=== PATIENT | female | born 1940 | race Caucasian/White ===

== ENCOUNTER → 2019-11-15 | Outpatient (CLI) | payer MEDICARE ==
--- NOTE | 2019-11-10 09:02 | NUR ---
LMOM WITH INSTRUCTIONS. REQUEST THAT PT CALL BACK
[~2019-11-15] VITALS: Ht 160 cm; Wt 101.0 kg
[~2019-11-15] MED LIST: ACCUPRIL20 MG PO; ACCURETIC 12.51 TA1 PO; ADVIL200 MG PO; ASPIR-LOW81 MG PO; ASPIRIN 81M81 MG/TA2 PO; BYSTOLIC2.5 MG PO; BYSTOLIC5 MG PO; FEMARA PO; GLUCOPHAGE500 MG/TAB PO; HYDROCHLOROTHIAZIDE; IBUPROFEN 200200 MG PO; LASIX 20MG TABL20 MG PO; LEVOTHROID0.125 MG PO; LEVOXYL0.2 MG PO; MULTIPLE VITAMI1 TA5 PO; MVI; NITROSTAT0.4 MG SL; NITROSTAT0.4 MG/TAB SL; NORVASC 10MG10 MG PO; NORVASC10 MG PO; PROAIR HFA0.09 MG/AC IH; PROTONIX 40MG T40 MG PO; QUINAPRIL; QUINARETIC PO; TYLENOL 325MG325 MG PO; ZESTRIL 20MG TA20 MG PO; ZOCOR 40MG40 MG PO; ZOCOR40 MG PO
[2019-11-15 10:17] VITALS: BP 195/85; PULSE 75
[2019-11-15 11:20] VITALS: BP 187/79; PULSE 66
== END ==
LOC: COL.RAD
DX: C50.412 Malignant neoplasm of upper-outer quadrant of left female breast (principal); R59.0 Localized enlarged lymph nodes

== ENCOUNTER 2020-03-14 08:57 | Day surgery (SDC) | payer MEDICARE ==
[~2020-03-14] VITALS: Ht 160 cm; Wt 101.1 kg
[~2020-03-14 08:57] MED LIST changes: +ALDACTONE 25MG25 M1 PO; +ALDACTONE50 MG PO; +ANORO IH; +ILOTYCIN5 MG/GM OP; +LASIX 40MG TABL40 MG PO; +MEDROL 4MG DOSPA4 MG PO; +OMNICEF 300MG300 MG PO; +OXYGEN NASAL.CANN; +QUESTRAN4 GM/9 GM PO; +VENTOLIN0.09 MG IH
[2020-03-14 09:49] VITALS: BP 167/68; PULSE 64; TEMP 97.8
[2020-03-14 11:10] VITALS: BP 196/76; PULSE 60; TEMP 97.8
--- NOTE | 2020-03-14 11:22 | NUR ---
PT RETURNED FROM ENDO PROCEDURE ROOM INTO BAY#5. AMBULATED WITH 2 PERSON ASSIST WITHOUT PROBLEMS. BP ELEVATED. PT STATES SHE IS NERVOUS AND DOES TEND TO RUN HIGH. OTHER VS ARE WNL. ASKS FOR GRAPE JUICE. DENIES PAIN OR NAUSEA AT THIS TIME.
[2020-03-14 11:30] VITALS: BP 185/68; PULSE 60
--- NOTE | 2020-03-14 11:32 | NUR ---
PT TOLERATING GRAPE JUICE AND CRACKERS. DENIES PAIN AND NAUSEA/VOMITING. DC IV AMD IVF. WILL CONT TO MONITOR.
[2020-03-14 11:47] VITALS: BP 167/72; PULSE 60
--- NOTE | 2020-03-14 11:48 | NUR ---
PT TOLERATING FOOD AND FLUIDS, CONTINUING TO DENY PAIN OR NAUSEA AT THIS TIME. DR MCKOY AWARE OF INCREASE IN BP. SPOKE WITH PT ABOUT INCREASING HER DIURETICS. REFER TO POST PROCEDURE INSTRUCTIONS. PT SIGNED DISCHARGE INSTRUCTIONS. DENIES QUESTIONS OR CONCERNS.
--- NOTE | 2020-03-14 12:21 | NUR ---
PT DISCHARGED PER WC. SISTER WAS DRIVING FAMILY VEHICLE.
== END 2020-03-14 12:26 | disposition home or self-care (01) ==
LOC: SDCO 08:57
DX: K74.60 Unspecified cirrhosis of liver (principal); E66.9 Obesity, unspecified; Z68.36 Body mass index [BMI] 36.0-36.9, adult; Z90.49 Acquired absence of other specified parts of digestive tract; Z95.1 Presence of aortocoronary bypass graft; I25.10 Atherosclerotic heart disease of native coronary artery without angina pectoris; I25.2 Old myocardial infarction; I10 Essential (primary) hypertension; E78.5 Hyperlipidemia, unspecified; Z87.891 Personal history of nicotine dependence; K21.9 Gastro-esophageal reflux disease without esophagitis; E03.9 Hypothyroidism, unspecified
CPT/HCPCS: J2704; J7030

== ENCOUNTER 2020-11-01 21:55 | Inpatient (IN) | payer MEDICARE ==
[~2020-11-01] VITALS: Ht 160 cm; Wt 109.6 kg
[2020-11-01 23:37] LABS: HEMOGLOBIN 11.9 g/dl (12.5-16.0); MEAN CELL VOLUME 95 fl (80.0-100.0); MEAN CORPUSCULAR HEMOGLOBIN 31 pg (27.0-31.0); MEAN CORPUSCULAR HGB CONC 33 g/dl (33.0-37.0); PLATELET COUNT 410 K/mm3 (130-400); RED BLOOD COUNT 3.84 M/mm3 (4.10-5.30); REDCELL DISTRIBUTION WIDTH-CV 16.2 % (11.5-14.5)
[2020-11-01 23:39] LABS: HEMATOCRIT 36.4 % (37.0-47.0)
[2020-11-01 23:47] LABS: ALBUMIN 4.1 gm/dL (3.5-5.0); BILIRUBIN,TOTAL 0.6 mg/dL (0.0-1.0); CALCIUM 9.9 mg/dL (8.4-10.2); CREATININE, serum 1.42 (0.52-1.25); POTASSIUM 5.4 mmol/L (3.4-5.0); TOTAL PROTEIN 7.4 gm/dL (6.4-8.2)
[2020-11-01 23:58] LABS: ANISOCYTOSIS 1+; BAND 4 % (0-10); HYPOCHROMIA 2+; LYMPHOCYTE 3 % (20.0-51.0); NEUTROPHILS 91 % (42.0-75.2); NUCLEATED RED BLOOD CELL 1 (0-6); PLATELET ESTIMATE INCREASED (NORMAL)
[2020-11-02 02:04] LABS: COLLECTION METHOD CLEAN CATCH
[2020-11-02 02:15] LABS: MUCOUS Present /lpf; PH 5 (5-8); URINE APPEARANCE Cloudy; URINE BACTERIA Occasional /hpf; URINE BILIRUBIN Negative (NEGATIVE); URINE BLOOD 3+ (NEGATIVE); URINE CALCIUM OXALATE CRYSTAL Present /hpf; URINE COLOR Amber; URINE GLUCOSE Negative (NEGATIVE); URINE KETONE Trace (NEGATIVE); URINE LEUKOCYTE ESTERASE 2+ (NEGATIVE); URINE NITRATE Negative (NEGATIVE); URINE PROTEIN(semi-quant) 2+ (NEGATIVE); URINE UROBILINOGEN Negative (NEGATIVE)
[2020-11-02 03:36] LABS: CALCIUM 8.8 mg/dL (8.4-10.2); CREATININE, serum 1.28 (0.52-1.25); MAGNESIUM 1.3 mg/dL (1.6-2.3); PHOSPHOROUS 4.3 mg/dL (2.5-4.5)
[2020-11-02 03:57] VITALS: BP 156/61; PULSE 77; TEMP 98
[2020-11-02 04:00] LABS: TROPONIN-I 0.023 ng/mL (0.000-0.035); TSH w REFLEX 4.656 uIU/mL (0.350-4.940)
--- NOTE | 2020-11-02 04:22 | NUR ---
Pt came for fall. She stated she was not feeling well after she took her second covid shot. She was going to the bathroom and fell and her son foud her. BP is elevated. Pain rated 4/10. Pt is getting IV fluid. Will continue to monitor.
[2020-11-02] MEDS ORDERED: QUESTRAN4 GM/9 GM PO (04:36)
[2020-11-02 06:49] LABS: BASO % 0.2 % (0.0-2.0); GRAN % 86.5 % (42.2-75.2); HEMOGLOBIN 10.2 g/dl (12.5-16.0); LYMPH # 0.8 (1.2-3.4); LYMPH % 4.8 % (20.0-51.0); MEAN CELL VOLUME 96 fl (80.0-100.0); MEAN CORPUSCULAR HEMOGLOBIN 31 pg (27.0-31.0); MEAN CORPUSCULAR HGB CONC 32 g/dl (33.0-37.0); MEAN PLATELET VOLUME 10.6 fl (7.4-10.4); MONO # 1.3 (0.1-0.6); MONO % 7.7 % (1.7-9.3); PLATELET COUNT 375 K/mm3 (130-400); REDCELL DISTRIBUTION WIDTH-CV 16.4 % (11.5-14.5)
[2020-11-02 06:51] LABS: HEMATOCRIT 31.8 % (37.0-47.0)
[2020-11-02 08:35] VITALS: BP 152/62; PULSE 66; TEMP 97.9
[2020-11-02 08:41] LABS: CALCIUM 9.1 mg/dL (8.4-10.2); CREATININE, serum 1.27 (0.52-1.25); POTASSIUM 5.1 mmol/L (3.4-5.0)
--- NOTE | 2020-11-02 10:08 | NUR ---
PT just in recently working with pt. They reported that she did well, but did not feel comfortable going too far from the side of the bed. Had some complaints of pain, but stated it was tolerable.
--- NOTE | 2020-11-02 10:51 | NUR ---
gas plant worker met with patient to discuss discharge plan. Patient lives at home alone at home in [place]. Patient reports she is independent on all activities of daily living and use a walker to ambulate when she feels like she needs it. PCP is Dr. Greco at [facility] and uses [facility] in [place]. Worker discussed the recommendation from PT/OT for a SNF stay. Patient refuses to be placed in a facility of any kind but is open to HH. States she has had HH for PT before that ended this past January but unsure of the agency. Worker called Dr. Greco's office and they have [facility] on their file. Patient states she has multiple family members who are in the medical field "that can help me". Worker attempted to call oldest son Pieter to discuss, message left. *Discharge plan: Home with HH/family* *
--- NOTE | 2020-11-02 11:26 | NUR ---
Son Ray ([phone]) called this worker back. Worker explained that patient is refusing skilled care and he is supportative of this decision. Son's belief is that the falls are due to the water retenion and want's to know if there was a medication we could give her to slow down the retention. Worker offered to have [facility] nurse call him.
--- NOTE | 2020-11-02 11:36 | NUR ---
Pt blood sugar 68, gave her juice at this time. Pt has also ordered her lunch
[2020-11-02 11:48] LABS: CALCIUM 8.7 mg/dL (8.4-10.2); CREATININE, serum 1.18 (0.52-1.25); POTASSIUM 5.5 mmol/L (3.4-5.0)
[2020-11-02 12:55] VITALS: BP 145/61; PULSE 64; TEMP 97.5
--- NOTE | 2020-11-02 13:56 | NUR ---
Pt blood sugar did recover quickly after the juice earlier around lunch time. Pt does not eat much, states that she does not have much of an appetite. She continues to have pain in her left arm/shoulder and elbow, pain medication given. Pt has slept off and on most of the day. No other needs at this time, call light within reach
--- NOTE | 2020-11-02 14:52 | NUR ---
Georgina with [facility] contacted with referral information. Worker expressed concern about the patient being able to handle 3 hours of therapy. Georgina will look into the case and get back with me.
[2020-11-02 16:55] VITALS: BP 152/72; PULSE 65; TEMP 97.8
--- NOTE | 2020-11-02 17:34 | NUR ---
Pt has slept off and on throughout the day. Pain medication is helping her left arm pain. Fingers and left hand are still a little swollen. Pt continues to not use her left arm much. Jocelin from [facility] talked with pt regarding [facility] unit. Talked with pt about us wanting her to be strong enough before she goes home. Pt denies any needs at this time. Assisted with repositioning her.
[2020-11-02 18:59] LABS: CALCIUM 8.9 mg/dL (8.4-10.2); CREATININE, serum 1.13 (0.52-1.25); POTASSIUM 5.2 mmol/L (3.4-5.0)
[2020-11-02 20:03] VITALS: BP 132/60; PULSE 66; TEMP 97.8
--- NOTE | 2020-11-02 21:42 | NUR ---
Pt has resting in bed. Pain rated 2/10. Vss. Will continue to monitor.
[2020-11-02 23:47] LABS: CALCIUM 8.6 mg/dL (8.4-10.2); CREATININE, serum 1.03 (0.52-1.25); POTASSIUM 5.2 mmol/L (3.4-5.0)
[2020-11-03] VITALS (7 sets, daily range): BP systolic 149–174; BP diastolic 54–65; PULSE 58–72; TEMP 98–98.6
[2020-11-03 08:29] LABS: BASO % 0.2 % (0.0-2.0); EOS % 0.1 % (0-4.0); LYMPH # 1.2 (1.2-3.4); LYMPH % 10.3 % (20.0-51.0); MEAN CELL VOLUME 100 fl (80.0-100.0); MEAN CORPUSCULAR HGB CONC 31 g/dl (33.0-37.0); MEAN PLATELET VOLUME 10.1 fl (7.4-10.4); MONO # 1.2 (0.1-0.6); MONO % 10.4 % (1.7-9.3); RED BLOOD COUNT 2.91 M/mm3 (4.10-5.30); REDCELL DISTRIBUTION WIDTH-CV 16.7 % (11.5-14.5)
[2020-11-03 08:31] LABS: HEMOGLOBIN 9.1 g/dl (12.5-16.0); MEAN CORPUSCULAR HEMOGLOBIN 31 pg (27.0-31.0); PLATELET COUNT 274 K/mm3 (130-400)
[2020-11-03 08:33] LABS: ALANINE AMINOTRANSFERASE 32 U/L (4-34); ALBUMIN 2.9 gm/dL (3.5-5.0); ALKALINE PHOSPHATASE 111 U/L (50-136); ANION GAP 6 mmol/L (7-16); AST,SGOT 70 U/L (15-37); BILIRUBIN,TOTAL < 0.1 mg/dL (0.0-1.0); BLOOD UREA NITROGEN 20 mg/dL (7-17); CALCIUM 8.5 mg/dL (8.4-10.2); CARBON DIOXIDE 18 mmol/L (22-30); CHLORIDE 105 mmol/L (98-107); CREATINE KINASE 746 U/L (30-135); CREATININE, serum 0.94 (0.52-1.25); GLUCOSE 112 mg/dL (74-106); MAGNESIUM 1.8 mg/dL (1.6-2.3); POTASSIUM 5.3 mmol/L (3.4-5.0); SODIUM 129 mmol/L (137-145); TOTAL PROTEIN 5.7 gm/dL (6.4-8.2)
--- NOTE | 2020-11-03 13:39 | NUR ---
stopped by but nothing needed at this time.
--- NOTE | 2020-11-03 18:15 | NUR ---
Pt rested in bed through the day. Repositioning offered. Dressings to L side changed. Rama MONTEIRO. POC discussed with patient who verbalizes understanding. No needs at this time.
--- NOTE | 2020-11-04 01:03 | NUR ---
Pt has been doing good. pain rated 4/10. Heat packed is currently in place. Will continue to monitor.
[2020-11-04 03:26] VITALS: BP 152/52; PULSE 65; TEMP 98.3
[2020-11-04 08:00] VITALS: BP 141/50; PULSE 60; TEMP 98.4
[2020-11-04 09:07] LABS: BASO % 0.2 % (0.0-2.0); EOS # 0.1 (0.0-0.7); EOS % 0.6 % (0-4.0); GRAN # 8.9 (1.4-6.5); GRAN % 81.3 % (42.2-75.2); LYMPH # 0.9 (1.2-3.4); LYMPH % 8.3 % (20.0-51.0); MEAN CELL VOLUME 97 fl (80.0-100.0); MEAN CORPUSCULAR HGB CONC 31 g/dl (33.0-37.0); MEAN PLATELET VOLUME 9.8 fl (7.4-10.4); MONO # 0.9 (0.1-0.6); MONO % 8.4 % (1.7-9.3); PLATELET COUNT 271 K/mm3 (130-400); RED BLOOD COUNT 2.95 M/mm3 (4.10-5.30); REDCELL DISTRIBUTION WIDTH-CV 16.3 % (11.5-14.5)
[2020-11-04 09:13] LABS: HEMATOCRIT 28.6 % (37.0-47.0); HEMOGLOBIN 8.9 g/dl (12.5-16.0); MEAN CORPUSCULAR HEMOGLOBIN 30 pg (27.0-31.0)
[2020-11-04 09:21] LABS: CALCIUM 8.8 mg/dL (8.4-10.2); CREATININE, serum 0.86 (0.52-1.25); POTASSIUM 4.5 mmol/L (3.4-5.0)
[2020-11-04 11:36] VITALS: BP 141/51; PULSE 64; TEMP 98.2
[2020-11-04 16:13] VITALS: BP 151/59; PULSE 62; TEMP 98.5
--- NOTE | 2020-11-04 17:59 | NUR ---
Pt rested in bed all day. Does not move independently in bed much through the day. Air mattress applied to bed earlier in day. Dressings to L hip and L elbow changed. SCD's in place. K pad to L shoulder d/t pain. No needs at this time. Call light within reach.
[2020-11-04 20:57] VITALS: BP 159/52; PULSE 71; TEMP 98.5
--- NOTE | 2020-11-04 21:00 | NUR ---
PATIENT IS RESTING IN BED.DENIES PAIN.PATIENT HAS A K PAD.SAFETY MEASURES IN PLACE.NO OTHER NEEDS AT THIS TIME.
[2020-11-05] VITALS (7 sets, daily range): BP systolic 148–171; BP diastolic 49–76; PULSE 64–80; TEMP 97.8–99.3
--- NOTE | 2020-11-05 05:56 | NUR ---
PATIRNT HAD A CALM NIGHT.PATIENT HAS A MAHARAJ IN SITU DRAINING CLEAR YELLOW URINE.SAFETY MEASURES IN PLACE.NO OTHER NEEDS AT THIS TIME.
[2020-11-05 07:18] LABS: CALCIUM 8.8 mg/dL (8.4-10.2); CREATININE, serum 0.82 (0.52-1.25); POTASSIUM 4.5 mmol/L (3.4-5.0)
--- NOTE | 2020-11-05 08:00 | NUR ---
PATIENT IS A&O AND SITTING UP IN BEDSIDE CHAIR. 1-2 ASSIST TO COMMODE TO HAVE BM. VSS ON TELE. DENIES PAIN OR NAUSEA. BREAKFAST TRAY ORDERED. AM MEDS GIVEN. HEAD TO TOE ASSESSMENT COMPLETE, SEE DOCUMENTATION. MAHARAJ TO DD WITH MOD AMOUNTS OF YELLOW URINE NOTED. LEFT AC IV TO INT. PATIENT USING K-PAD FOR COMFORT. NO COMPLAINTS. PATIENT BEING SCREENED FOR [facility], CHICKEN FANCIER CONSULTED FOR DISCHARGE NEEDS. NO OTHER NEEDS AT THIS TIME. CALL LIGHT IN REACH.
--- NOTE | 2020-11-05 10:05 | NUR ---
Pt has been taking FEMARA daily po. This chemotherapy drug will be present in the patient's urine requiring PPE for 10 days following. Signage posted and discussed with JAKE Mccarty.
--- NOTE | 2020-11-05 14:45 | NUR ---
target worker called [facility] to see if they have a swingbed open. Patient still refusing to be admitted to a SNF in a senior living setting. Worker suggested [facility] and the patient states that is to far away. Georgina with [facility] met with patient. Georgina is monitoring the patient and bed status.
--- NOTE | 2020-11-05 17:15 | NUR ---
RECEIVED REPORT FROM DAY SHIFT NURSE. PATIENT SLEEPS AND DOES NOT WAKE DURING REPORT. CALL LIGHT WITHIN REACH.
--- NOTE | 2020-11-05 19:24 | NUR ---
CHANGE OF SHIFT REPORT GIVEN TO IN ROOM DINING SERVER NURSE, YANA JOSEPH.
--- NOTE | 2020-11-05 21:02 | NUR ---
PATIENT IS RESTING IN BED.PATIENT DENIES PAIN.PATIENT HAS NOT VOIDED SINCE THE MAHARAJ WAS REMOVED.DUE MEDS GIVEN.SAFETY MEASURES IN PLACE.NO OTHER NEED AT THIS TIME.
--- NOTE | 2020-11-05 22:30 | NUR ---
PATIENT HAD NOT VOIDED SINCE THE MAHARAJ WAS TAKEN OUT AT 1600.A BLADDER SCAN WAS DONE SHOWED 1100MLS URINE.
--- NOTE | 2020-11-05 23:20 | NUR ---
PATIENT WAS UNABLE TO VOID.NIGHT PROVIDER INFORMED.ORDERED FOR MAHARAJ INSERTION.A 18F MAHARAJ WAS INSERTED.DRAINING CLEAR YELLOW URINE.
[2020-11-06 03:36] VITALS: BP 154/59; PULSE 72; TEMP 98.7
--- NOTE | 2020-11-06 05:54 | NUR ---
PATIENT HAD A GOOD NIGHT.PATIEN HAS A MAHARAJ DRAINING YELLOW CLEAR URINE.IV ACCESS ON LEFT AC WAS LEAKING.IV WAS TAKEN OUT.STARTED A NEW IV ACCESS ON THE LF.SAFETY MEASURES IN PLACE.NO OTHER NEEDS AT THIS TIME.
--- NOTE | 2020-11-06 07:05 | NUR ---
BEDSIDE REPORT TAKEN @ THIS TIME. PT IS RESTING IN BED, DENIES ANY NEEDS @ THIS TIME. CALL LIGHT WITHIN REACH.
[2020-11-06 07:17] LABS: BASO % 0.4 % (0.0-2.0); EOS # 0.1 (0.0-0.7); EOS % 1.3 % (0-4.0); GRAN # 8.9 (1.4-6.5); GRAN % 80.7 % (42.2-75.2); LYMPH # 0.8 (1.2-3.4); LYMPH % 6.8 % (20.0-51.0); MEAN CELL VOLUME 97 fl (80.0-100.0); MEAN CORPUSCULAR HGB CONC 32 g/dl (33.0-37.0); MEAN PLATELET VOLUME 10.2 fl (7.4-10.4); MONO % 9.4 % (1.7-9.3); PLATELET COUNT 264 K/mm3 (130-400); RED BLOOD COUNT 2.93 M/mm3 (4.10-5.30); REDCELL DISTRIBUTION WIDTH-CV 16.3 % (11.5-14.5)
[2020-11-06 07:18] LABS: HEMATOCRIT 28.3 % (37.0-47.0); MEAN CORPUSCULAR HEMOGLOBIN 31 pg (27.0-31.0)
[2020-11-06 07:38] LABS: ALBUMIN 3.3 gm/dL (3.5-5.0); BILIRUBIN,TOTAL 0.8 mg/dL (0.0-1.0); CALCIUM 9.1 mg/dL (8.4-10.2); CREATININE, serum 0.72 (0.52-1.25); POTASSIUM 4.7 mmol/L (3.4-5.0)
[2020-11-06 08:42] VITALS: BP 172/47; PULSE 72; TEMP 97.9
--- NOTE | 2020-11-06 09:15 | NUR ---
DRESSING CHANGED ON LEFT ELBOW. NOTED LARGE AMOUNT OF SEROSANGUINEOUS DRAINAGE. MULTIPLE BRUISES ET ARM IS EDEMATOUS.
[2020-11-06 10:38] LABS: COLLECTION METHOD CATHETER
[2020-11-06 10:44] LABS: PH 5 (5-8); SQUAMOUS EPITHELIAL None Seen /hpf; URINE APPEARANCE Clear; URINE BACTERIA None Seen /hpf; URINE BILIRUBIN Negative (NEGATIVE); URINE BLOOD Negative (NEGATIVE); URINE COLOR Yellow; URINE GLUCOSE Negative (NEGATIVE); URINE KETONE Negative (NEGATIVE); URINE LEUKOCYTE ESTERASE Negative (NEGATIVE); URINE NITRATE Negative (NEGATIVE); URINE PROTEIN(semi-quant) Negative (NEGATIVE); URINE RBC 0-2 /hpf; URINE UROBILINOGEN Negative (NEGATIVE)
[2020-11-06 11:24] VITALS: BP 161/51; PULSE 67; TEMP 97.2
--- NOTE | 2020-11-06 13:13 | NUR ---
PT in working with pt. She was assisted back to bed. She did well for a couple steps, but then sat down a little before she should have. Pt is aware that she will be having the paracentesis later this afternoon.
--- NOTE | 2020-11-06 13:27 | NUR ---
PT CALLS TO USE BEDPAN @ THIS TIME TO HAVE A BM. WHILE TURNING, IT IS NOTED THAT PT HAS A SMALL RAISED YELLOW BLISTER ON HER RIGHT LOWER BUTTOCK. WHEN ASKED ABOUT IT, PT STATES THAT SHE THINKS THAT IT'S BEEN THERE AWHILE. SKIN IS INTACT ET NO DRAINAGE SEEN.
--- NOTE | 2020-11-06 15:49 | NUR ---
PT BACK TO ROOM FROM PARACENTESIS.
[2020-11-06 15:58] VITALS: BP 164/48; PULSE 73; TEMP 97.4
--- NOTE | 2020-11-06 16:35 | NUR ---
ironworker wire fence erector contacted Georgina in [facility] to get update. Unknown at this time if she can accept this patient. Physician's contacted, with possible HH. Patient still refusing to be placed in a intermediate for SNF and is not willing to go to [facility] for [facility].
[2020-11-06 19:45] VITALS: BP 162/51; PULSE 69; TEMP 97.9
[2020-11-06 23:32] VITALS: BP 178/58; PULSE 72; TEMP 98.1
[2020-11-07 03:11] VITALS: BP 161/51; PULSE 66; TEMP 98.1
--- NOTE | 2020-11-07 06:02 | NUR ---
Resting quietly, turned q 2 hours w/offloading of pressure areas w/ pillows, diaz draining yellow urine to gravity, VS stable, chemo precautions in use with urine, dressing to R abdomen for paracentesis entry point c/d/i, updated on plan of care.
--- NOTE | 2020-11-07 06:45 | NUR ---
BEDSIDE REPORT RECEIVED @ THIS TIME. PT IS LAYING IN BED ON RIGHT SIDE. RESPIRATIONS UNLABORED, PT IS AWAKE. DENIES PAIN BUT STATES THAT SHE WAS UNCOMFORTABLE ET UNABLE TO REST WELL DURING NIGHT. CALL LIGHT WITHIN REACH.
[2020-11-07 07:15] LABS: BASO % 0.3 % (0.0-2.0); EOS # 0.2 (0.0-0.7); EOS % 1.4 % (0-4.0); GRAN # 8.8 (1.4-6.5); GRAN % 81.7 % (42.2-75.2); LYMPH # 0.8 (1.2-3.4); LYMPH % 7.2 % (20.0-51.0); MEAN CELL VOLUME 99 fl (80.0-100.0); MEAN CORPUSCULAR HGB CONC 31 g/dl (33.0-37.0); MEAN PLATELET VOLUME 10.5 fl (7.4-10.4); MONO # 0.9 (0.1-0.6); MONO % 8.3 % (1.7-9.3); PLATELET COUNT 240 K/mm3 (130-400); RED BLOOD COUNT 2.93 M/mm3 (4.10-5.30)
[2020-11-07 07:21] LABS: HEMATOCRIT 28.9 % (37.0-47.0); MEAN CORPUSCULAR HEMOGLOBIN 31 pg (27.0-31.0)
[2020-11-07 07:28] VITALS: BP 149/41; PULSE 65; TEMP 98.2
--- NOTE | 2020-11-07 09:10 | NUR ---
Patient sitting up in chair. Hospitalist rounded, plan of care reviewed. new dressing to left elbow. edit to Nayely assessment. Agree with her cares
[2020-11-07] MEDS ORDERED: OMNICEF 300MG300 MG PO (09:12)
[2020-11-07] MEDS ORDERED: ALDACTONE50 MG PO (09:14)
[2020-11-07 11:14] VITALS: BP 147/45; PULSE 64; TEMP 97.8
--- NOTE | 2020-11-07 15:29 | NUR ---
PT DISCHARGED ET TRANSFERRED VIA WHEELCHAIR TO [facility] IN ROOM 339. REPORT GIVEN TO [facility] NURSE. PERIPHERAL IV DISCONTINUED, CATHETER TIP INTACT.
== END 2020-11-07 15:38 | DRG 872 ==
LOC: COL.ER 21:55 → SURG 11-02 03:11
PROVIDERS: Emergency Medicine; Internal Medicine; Nurse Practitioner Family; Physician Assistant; ADMIT Internal Medicine
PROC: 0W9G3ZZ Drainage of Peritoneal Cavity, Percutaneous Approach (ICD-10-PCS; principal; 2020-11-06)
DX: A41.9 Sepsis, unspecified organism (principal); M62.82 Rhabdomyolysis; E87.2 Acidosis; E87.1 Hypo-osmolality and hyponatremia; N17.9 Acute kidney failure, unspecified; R18.8 Other ascites; R80.9 Proteinuria, unspecified; E78.5 Hyperlipidemia, unspecified; I25.10 Atherosclerotic heart disease of native coronary artery without angina pectoris; E03.9 Hypothyroidism, unspecified; I27.20 Pulmonary hypertension, unspecified; D50.0 Iron deficiency anemia secondary to blood loss (chronic); K74.60 Unspecified cirrhosis of liver; E87.5 Hyperkalemia; E87.6 Hypokalemia; E83.42 Hypomagnesemia; K21.9 Gastro-esophageal reflux disease without esophagitis; R74.01 Elevation of levels of liver transaminase levels; R53.81 Other malaise; J44.9 Chronic obstructive pulmonary disease, unspecified; E86.1 Hypovolemia; Z90.49 Acquired absence of other specified parts of digestive tract; Z90.710 Acquired absence of both cervix and uterus; Z85.3 Personal history of malignant neoplasm of breast; Z95.1 Presence of aortocoronary bypass graft; Z90.12 Acquired absence of left breast and nipple; Z79.84 Long term (current) use of oral hypoglycemic drugs; Z87.891 Personal history of nicotine dependence
CPT/HCPCS: 99223-AI; 99232-AI; 99239; A4314; J0696; J1815; J1940; J2405; J3010; J3475; J7030; P9047

== ENCOUNTER 2020-11-07 15:06 | Inpatient (IN) | payer MEDICARE ==
[~2020-11-07] VITALS: Ht 160 cm; Wt 96.3 kg
[2020-11-07 17:15] VITALS: BP 144/45; PULSE 69; TEMP 98.2
--- NOTE | 2020-11-08 00:09 | NUR ---
ALERT OX3. DENIES SOA, CHEST PAIN OR DIZZY. PAIN IN BILATERAL LEG AND BACK RATING 5/10,TYL GIVEN. PM MEDS PER MAR. SKIN TEAR TO LT ELBOW COVERED. LEGS EDEMA, ELV ON PILLOWS. BOTTOM RED, BARRIER CREAM. MAHARAJ CATH TO DD, OMNICEF ANTIBOTICS. CALL LIGHT WI REACH. NEEDS MET.
[2020-11-08 04:12] VITALS: BP 149/47; PULSE 65; TEMP 98.3
--- NOTE | 2020-11-08 06:30 | NUR ---
Report received from JAKE Garber. Patient is sleeping in bed. Call light and bedside table are within reach. Will continue to monitor throughout shift.
--- NOTE | 2020-11-08 08:45 | NUR ---
Changed dressing on LLE and covered it with gauze and Tefla. Skin tear started bleeding prior to covering it up.
--- NOTE | 2020-11-08 15:07 | NUR ---
Welcomed pt to the Rehab unit. Explained the rehab process & goals. Completed SW assessment w/ pt. She is alert & oriented & able to communicate her needs & wants to others. She has upper dentures but doesn t always wear them & readers for reading. She lives at home alone in a 1 story mobile home. There are 3 steps to enter w/ bilateral handrails. The bathroom has a walk-in shower w/ curtain & hand held shower head, but no grab bars. The toilet is ADA height. Pt reports walking w/ a walker & was independent w/ her self care. She also reports doing the cooking, housekeeping, laundry, shopping, driving short distances, medication management, & finance management. She has her own 4/w/walker, r/walker, shower chair, & lift chair. Pharmacy: Use [facility] in [place] for immediate prescription needs but established meds she uses [facility] mail-order & reports she has no concerns or issues w/ affording her medications. PCP: Dr. Greco DPOA: stated that her son, Ray, is her POA but doesn t think we have a copy. Read past notes & unsure if pt even has legal DPOA paperwork. Will follow up with family. Pt had no questions/concerns at this time about her rehab stay. SW will continue to follow to provide support & assist w/ d/c planning.
[2020-11-08 17:19] VITALS: BP 152/43; PULSE 66; TEMP 97.3
--- NOTE | 2020-11-08 19:15 | NUR ---
ASSISTED PT BACK TO BED FROM BSC. NEEDED SOME CUING FOR SAFETY. NEEDED ASSIST LIFTING LEGS INTO BED. F/C DRAINING FREELY CLEAR YELLOW RETURN. CONTINUED 1200 FLUID RESTRICTION ORDERED. DRSG TO PARACENTSIS SITE LT LAT ABD CDI. CALL LIGHT IN REACH. BED ALARM SET.
[2020-11-09 05:43] VITALS: BP 150/45; PULSE 66; TEMP 98.6
--- NOTE | 2020-11-09 06:55 | NUR ---
Report received from JAKE Chau. Patient is sleeping in bed. Call light and bedside table are within reach. Will continue to monitor throughout shift.
[2020-11-09 08:43] LABS: ALBUMIN 3.2 gm/dL (3.5-5.0); BASO % 0.3 % (0.0-2.0); BILIRUBIN,TOTAL 0.9 mg/dL (0.0-1.0); CALCIUM 9.2 mg/dL (8.4-10.2); CREATININE, serum 0.76 (0.52-1.25); EOS # 0.1 (0.0-0.7); EOS % 1.3 % (0-4.0); GRAN # 8.8 (1.4-6.5); GRAN % 81.6 % (42.2-75.2); LYMPH # 0.8 (1.2-3.4); LYMPH % 7.2 % (20.0-51.0); MAGNESIUM 1.7 mg/dL (1.6-2.3); MEAN CELL VOLUME 98 fl (80.0-100.0); MEAN CORPUSCULAR HGB CONC 31 g/dl (33.0-37.0); MEAN PLATELET VOLUME 10.4 fl (7.4-10.4); MONO # 0.9 (0.1-0.6); MONO % 8.3 % (1.7-9.3); PLATELET COUNT 233 K/mm3 (130-400); POTASSIUM 4.7 mmol/L (3.4-5.0); RED BLOOD COUNT 2.96 M/mm3 (4.10-5.30); REDCELL DISTRIBUTION WIDTH-CV 15.9 % (11.5-14.5); TOTAL PROTEIN 5.8 gm/dL (6.4-8.2)
[2020-11-09 08:45] LABS: HEMATOCRIT 29.1 % (37.0-47.0); HEMOGLOBIN 9.1 g/dl (12.5-16.0); MEAN CORPUSCULAR HEMOGLOBIN 31 pg (27.0-31.0)
--- NOTE | 2020-11-09 13:00 | NUR ---
This nurse was told by JUSTINA Holbrook that PAULA Dumont told her patient was complaining of pain in calves. This nurse went into the patient's room to address it with her and she stated she thought it was more muscular than pain from clot since she is already on a blood thinner. This nurse will continue to monitor patient throughout shift for changes.
--- NOTE | 2020-11-09 14:35 | NUR ---
Patient has completed all therapies for the day and is resting in the recliner. Patient continues to c/o pain in calves and still insisted she believes it is muscular. Will continue to monitor patient throughtout shift.
[2020-11-09 17:19] VITALS: BP 175/60; PULSE 74; TEMP 99
--- NOTE | 2020-11-09 19:00 | NUR ---
ASSISTED PT BACK TO BED FROM BSC. HAD LARGE LOOSE BROWN STOOL. NEEDED ASSIST WITH FEET BRETT BED. NOTABLE CURVATURE OF SPINE. MAHARAJ DRAINING FREELY CLEAR YELLOW URINE. BLOOD BLISTER TO RT HAND 3RD FINGER- INTACT. RT HAND STILL PAIN AT TIMES. DENIES NEED FOR TYLENOL. CALL LIGHT IN REACH. BED ALARM SET.
[2020-11-10 05:15] VITALS: BP 160/49; PULSE 65; TEMP 98.3
--- NOTE | 2020-11-10 06:46 | NUR ---
Report received from JAKE Chau. Patient is in bed sleep. Call light and bedside table are within reach. Will continue to monitor patient throughout shift.
--- NOTE | 2020-11-10 17:30 | NUR ---
Patient had 3 episodes of watery diarrhea. This nurse called Dr. Causey and he consented to ordering the patient Loperamide. Gave patient 4 mg of Loperamide.
[2020-11-10 18:00] VITALS: BP 153/52; PULSE 72; TEMP 97.5
--- NOTE | 2020-11-10 21:49 | NUR ---
RESTING IN BED. TYLENOL GIVEN FOR RT HAND DISCOMFORT. NO OTHER NEEDS.
--- NOTE | 2020-11-10 23:12 | NUR ---
TYLENOL FOR LT HAND PAIN. 3RD FINGER SWOLLEN. ELEVATED ON PILLOW AND PLACED ICE PACK.
[2020-11-11 04:14] VITALS: BP 166/53; PULSE 57; TEMP 97.6
--- NOTE | 2020-11-11 06:58 | NUR ---
Report received from JAKE Chau. Patient is sleeping. Call light and bedside table are within reach. Will continue to monitor patient throughout shift.
--- NOTE | 2020-11-11 10:45 | NUR ---
Patient's diaz catheter dc'd. Tolerated removal well. Will continue to monitor throughout shift.
--- NOTE | 2020-11-11 11:45 | NUR ---
Patient's son is at bedside. Patient states pain is 3/10, right hand. Gave patient ice. Call light and bedside table are within reach.
[2020-11-11 18:00] VITALS: BP 158/59; PULSE 64; TEMP 98
--- NOTE | 2020-11-11 20:30 | NUR ---
ASSISTED PT TO BSC. VOIDING WELL POST F/C DC. STILL HAVING RT HAND PAIN. SL SWOLLEN ON TOP SURFACE. ELEVATED AND ICE PACK PLACED. SEE MAR FOR PAIN MED GIVEN. BLOOD BLISTER INTACT ON RT 3RD FINGER. CALL LIGHT IN REACH. BED ALARM SET.
--- NOTE | 2020-11-12 04:15 | NUR ---
ASSISTED TO BSC. VOIDED. DRSG TO LT HIP SATURATED AND FELL OFF. CLEANED AND CHANGED WITH GAUZE AND MEPILEX. ICE PACK TO RT HAND. CALL LIGHT IN REACH AND BED ALARM SET.
[2020-11-12 04:37] VITALS: BP 136/49; PULSE 64; TEMP 98.7
--- NOTE | 2020-11-12 06:42 | NUR ---
Report received from JAKE Chau. Patient is sleeping in bed. Call light and bedside table are within reach. Will continue to monitor throughout shift.
--- NOTE | 2020-11-12 11:40 | NUR ---
Patient has completed all therapies for the day and is resting in WC. Patient denies pain at this time. Call light and bedside table are within reach.
--- NOTE | 2020-11-12 12:30 | NUR ---
Patient c/o being nausea and feeling like she had "to throw up" during lunch. By the time this nurse returned with a basin, patient stated she was feeling better and that it had went away just as fast as it came. This nurse will continue to monitor patient thoughout shift.
--- NOTE | 2020-11-12 13:30 | NUR ---
Patients son is at bedside. Patient denies N/V and states she is feeling better. Bedside table and call light are within reach. Will continue to monitor patient.
[2020-11-12 17:18] VITALS: BP 174/53; PULSE 62; TEMP 98.2
--- NOTE | 2020-11-12 20:00 | NUR ---
PATIENT IS ALERT AND ORIENTED X4. SITTING UP IN BED. PATIENT IS ON LOW SODIUM DIET AND 1200CC FLUID RESTRICTION. PATIENT WALKED WITH WLAKER TO BATHROOM. STEADY GAIT, GAIT BELT UTILIZED. PATIENT HAS LEFT ARM RESTIRCTED DUE TO PAST BREAST CANCER. PATIENT HAS SKIN CARE ON LEFT BUTTOX, AND LEFT ARM. ALL COVERED BY MEPALEX OR BANDAIDS. PATIENT ALSO HAS MEPALEX TO COCCYS DUE TO REDNESS. PATIENT HAS RIGHT HAND PAIN IN 3RD DIGIT. PATIENT DENIES CURRENT PAIN OR FURTHER NEEDS. CALL LIGHT WITHIN REACH. HEAD TO TOE ASSESSMENT COMPLETE.
[2020-11-13 05:47] VITALS: BP 146/49; PULSE 63; TEMP 98.4
--- NOTE | 2020-11-13 05:53 | NUR ---
PATIENT DID WELL THROUGHOUT THE NIGHT. SLEPT MOST OF NIGHT, GOT UP A COUPLE OF TIMES TO USE THE RESTROOM. STEADY GAIT WITH WALKER. PATIENT HAD SCD'S ON AND OFF BILATERALLY THROUGHOUT THE NIGHT. PATIENT DENIES FURTHER NEEDS AT THIS TIME, CALL LIGHT WITHIN REACH. WILL REPORT TO DAY SHIFT.
--- NOTE | 2020-11-13 13:14 | NUR ---
Visited w/ pt. She stated she had a good weekend & feels she is doing well. In fact, she is inquiring about going home. Told her the team talked briefly about it & it would probably be later in the week. She was fine w/ this & looking forward to going home soon.
--- NOTE | 2020-11-13 15:06 | NUR ---
Admission QIM scores were reviewed by the team. Code of 4 chosen for oral hygiene was determined by team discussion to be the most usual performance before interventions for this patient during the assessment period. Code of 3 chosen for toilet hygiene was determined by team discussion to be the most usual performance for this patient during the assessment period. Code of 3 chosen for toileting transfers was determined by team discussion to be the most usual performance for this patient during the assessment period. Code of 3 chosen for shower/bathe self was determined by team discussion to be the most usual performance for this patient during the assessment period. Code of 3 chosen for upper body dressing was determined by team discussion to be the most usual performance for this patient during the assessment period. Code of 2 chosen for lower body dressing was determined by team discussion to be the most usual performance for this patient during the assessment period. Code of 4 chosen for rolling left to right was determined by team discussion to be the most usual performance before interventions for this patient during the assessment period. Code of 2 chosen for sit to lying was determined by team discussion to be the most usual performance for this patient during the assessment period. Code of 3 chosen for lying to sitting on side of bed was determined by team discussion to be the most usual performance for this patient during the assessment period. Code of 3 for sit to stand was determined by team discussion to be the most usual performance for this patient during the assessment period. Code of 3 for chair/bed to chair transfers was determined by team discussion to be the most usual performance for this patient during the assessment period.--Georgina Winters,
[2020-11-13 18:05] VITALS: BP 149/50; PULSE 68; TEMP 97.5
--- NOTE | 2020-11-13 21:20 | NUR ---
ALERT AND OX4. DENIES SOA, CHEST PAIN OR DIZZY. PAIN IN LT HAND/FINGER BRUISED. TYL GIVEN. PM MEDS. POC DISCUSSED. CALL LIGHT WI REACH. NEEDS MET.
[2020-11-14 06:52] VITALS: BP 117/59; PULSE 59; TEMP 97.9
--- NOTE | 2020-11-14 07:00 | NUR ---
Report recieved from JAKE Garber.
--- NOTE | 2020-11-14 08:00 | NUR ---
Assessment hcarted. Pt resting in chair at side of bed, called for assistance tobathroom and able to ambulate very well with gait belt and walker. Denies pain. Abd is distended and firm, pt states she gets regular paracentesis, was supposed to have CT of ABD OP with Dr. Olivarez today. Skin tears and bruising to arms bilaterally. Denies needs, will contineu to monitor.
--- NOTE | 2020-11-14 15:34 | NUR ---
Reviewed team conference notes w/ pt. She stated she understood & agreed w/ her current level of functioning. Informed her of d/c for 11/16/20 w/ recommendations for home health PT/OT. She stated she is excited about being able to go home. Inquired about which home health agency she would like to use but could remember. Told her SW would look at past SW notes. Did review that she has a r/walker, 4/w/walker, & shower chair at home. We talked about the tub transfer bench, which she really likes & plans on getting one. She did not have any other questions or concerns at this time.
[2020-11-14 16:08] VITALS: BP 144/50; PULSE 63; TEMP 97.8
--- NOTE | 2020-11-14 18:25 | NUR ---
Pt has done well this afternoon, enjoys being MOD I in room with walker. Son at bedside this evening talking with pt. PT denies need,s will give report to nightshift who will resume care.
--- NOTE | 2020-11-14 21:00 | NUR ---
PT MOD IN ROOM. MANAGING WELL. CONTINUED FLUID RESTRICTION ORDERED. SEE MAR FOR TYLENOL GIVEN FOR LT HAND PAIN. ICE PACK PROVIDED. ELEVATED ON PILLOW. 3RD FINGER RT HANDED HAS RUPTURED BLOOD BLISTER- HEALING. CALL LIGHT IN REACH
[2020-11-15 04:05] VITALS: BP 150/48; PULSE 63; TEMP 98
--- NOTE | 2020-11-15 06:44 | NUR ---
Report received from JAKE Chau. Patient is awake and denies pain at this time. Call light and bedside table are within reach. Will continue to monitor patient throughout shift.
--- NOTE | 2020-11-15 09:20 | NUR ---
Contacted [facility] & spoke w/ Christine. Referral was made for pt to receive home health PT/OT. Informed her of d/c for 11/16/20. Faxed referral information.
--- NOTE | 2020-11-15 14:30 | NUR ---
Patient has completed all therapies for the day and is resting in recliner. Patient denies pain at this time. Call light and bedside table are within reach.
[2020-11-15 15:12] VITALS: BP 134/44; PULSE 64; TEMP 97.9
--- NOTE | 2020-11-15 21:20 | NUR ---
PT MOD I IN ROOM. MANAGING WELL. SEE MAR FOR PAIN MED GIVEN EARLIER FOR CHRONIC BACK AND SCIATICA PAIN. CALL LIGHT IN REACH.
--- NOTE | 2020-11-15 23:14 | NUR ---
PT UP TO BR WITH WALKER. CHANGED MEPILEX DRSG TO LT MEDIAL POSTERIOR THIGH- STILL OPEN WOUND AND BLEEDING SM AMT. APRROXIMATELY 1.5CM DUCKWATER WITH BEEFY RED BED. CHANGED MEPILEX TO RT INNER THIGH WHICH IS HEALING AND SCABBED. LT F/A SKIN TEARS X2 - CHANGED MEPILEX X1. OTHER MEPILEX CDI.
[2020-11-16 05:33] VITALS: BP 129/51; PULSE 62; TEMP 98
--- NOTE | 2020-11-16 09:40 | NUR ---
Visited w/ pt about her d/c today, 11/16/20, to home w/ home health. She feels she is doing much better & glad she was her to get stronger. Informed her that [facility] has been set up. Inquired if there is anything else that she could think of that SW could help her w/ but she couldn't think of anything.
--- NOTE | 2020-11-16 11:21 | NUR ---
DISCHARGE INSTRUCTIONS REVIEWED WITH PT. QUESTIONS ANSWERED. PT WILL CALL WHEN RIDE ARRIVES.
--- NOTE | 2020-11-16 11:59 | NUR ---
PT LEFT UNIT BY WHEEL CHAIR TO POV AT THIS TIME.
== END 2020-11-16 12:00 | disposition home health service (06) | DRG 948 ==
PROVIDERS: ADMIT Internal Medicine
DX: R53.81 Other malaise (principal); E87.2 Acidosis; E87.1 Hypo-osmolality and hyponatremia; R18.8 Other ascites; N39.0 Urinary tract infection, site not specified; R26.89 Other abnormalities of gait and mobility; E87.5 Hyperkalemia; E83.42 Hypomagnesemia; J44.9 Chronic obstructive pulmonary disease, unspecified; R33.9 Retention of urine, unspecified; K74.60 Unspecified cirrhosis of liver; E11.9 Type 2 diabetes mellitus without complications; D64.9 Anemia, unspecified; R74.01 Elevation of levels of liver transaminase levels; K21.9 Gastro-esophageal reflux disease without esophagitis; I10 Essential (primary) hypertension; I25.10 Atherosclerotic heart disease of native coronary artery without angina pectoris; E78.5 Hyperlipidemia, unspecified; I27.29 Other secondary pulmonary hypertension; E03.9 Hypothyroidism, unspecified; Z87.01 Personal history of pneumonia (recurrent); Z90.12 Acquired absence of left breast and nipple; Z95.1 Presence of aortocoronary bypass graft; Z73.6 Limitation of activities due to disability; Z92.21 Personal history of antineoplastic chemotherapy; Z92.3 Personal history of irradiation; Z99.81 Dependence on supplemental oxygen; Z79.84 Long term (current) use of oral hypoglycemic drugs; Z79.899 Other long term (current) drug therapy; Z79.2 Long term (current) use of antibiotics; Z85.3 Personal history of malignant neoplasm of breast; B96.21 Shiga toxin-producing Escherichia coli [E. coli] [STEC] O157 as the cause of diseases classified elsewhere
CPT/HCPCS: 99222-AI; 99231-AI; 99232-AI; 99239; J1650

== ENCOUNTER 2021-04-01 14:22 | Emergency (ER) | payer MEDICARE ==
[~2021-04-01] VITALS: Ht 160 cm; Wt 90.9 kg
[2021-04-01 14:27] VITALS: TEMP 97.2
--- NOTE | 2021-04-01 16:03 | NUR ---
dynamic balancer set up worker spoke with Apolonia Queen (sister) #[phone] as patient states she wishes for Apolonia to pick her up from ED and stay with her a few days until she feels better. Worker advised that patient's hygiene was poor and Apolonia states she has been in patient's home trying to clean up the feces and is aware. Apolonia states that she and patient's son, Ray [phone] have discussed concerns that patient is close to needing long-term care. Worker also contacted [facility] and advised of the above information. Worker contacted Dr Greco's office (primary care provider) and requested a call to arrange home health for residential and physical therapy. Worker collaborated with patient's emergency room nurse, Sahra regarding the above information.
[2021-04-01 16:37] VITALS: BP 132/92; PULSE 78
== END 2021-04-01 16:37 | disposition home or self-care (01) ==
LOC: COL.ER 14:22
DX: S79.911A Unspecified injury of right hip, initial encounter (principal); E03.9 Hypothyroidism, unspecified; I10 Essential (primary) hypertension; E78.5 Hyperlipidemia, unspecified; I25.10 Atherosclerotic heart disease of native coronary artery without angina pectoris; E11.9 Type 2 diabetes mellitus without complications; J44.9 Chronic obstructive pulmonary disease, unspecified; Z20.822 Contact with and (suspected) exposure to COVID-19; Z79.84 Long term (current) use of oral hypoglycemic drugs; Z79.890 Hormone replacement therapy; Z79.899 Other long term (current) drug therapy; W19.XXXA Unspecified fall, initial encounter